=== PATIENT | male | born 1960 | race Caucasian/White ===

== ENCOUNTER 2016-06-20 08:02 | Emergency (ER) | payer MEDICAID, MEDICARE ==
--- NOTE | 2016-06-20 08:27 | UC ---
Respiratory Complaint HPI - HPI Summary HPI Summary: 55 yo male with cough x 1 1/2-2 weeks worse at night Sore throat due to cough chills can't sleep due to cough no n/v/d no SOB - History of Current Complaint Chief Complaint: UCRespiratory Stated Complaint: COUGH,CONGESTION Time Seen by Provider: 06/20/16 08:25 Hx Obtained From: Patient Onset/Duration: Gradual Onset, Lasting Weeks Timing: Constant Severity Initially: Mild Severity Currently: Moderate Pain Intensity: 4 Pain Scale Used: 0-10 Numeric Character: Cough: Productive - at times Aggravating Factors: Deep Breaths, Recumbent Position Alleviating Factors: Nothing Associated Signs And Symptoms: Positive: Chills, Nasal Congestion, Hoarseness - Allergies/Home Medications Allergies/Adverse Reactions: Allergies Allergy/AdvReac Type Severity Reaction Status Date / Time No Known Allergies Allergy Verified 06/20/16 08:13 Home Medications: Home Medications Canagliflozin (NF) [Invokana (NF)] 100 mg PO 06/20/16 [History] PARoxetine HCL TAB* [Paxil TAB*] 40 mg PO DAILY 06/20/16 [History Confirmed 10/01] Pregabalin CAP(*) [Lyrica CAP(*)] BID 06/20/16 [History] PMH/Surg Hx/FS Hx/Imm Hx Endocrine History Of: Reports: Diabetes Denies: Thyroid Disease Cardiovascular History Of: Reports: Cardiac Disorders - cardiomyopathy, Hypertension Respiratory History Of: Denies: Asthma - Surgical History Surgical History: Yes Surgery Procedure, Year, and Place: cardiac angioplasty - Family History Known Family History: Positive: Cardiac Disease, Hypertension - Social History Alcohol Use: None Substance Use Type: None Smoking Status (MU): Former Smoker Length of Time of Smoking/Using Tobacco: quit at 15 years old Have You Smoked in the Last Year: No Household Exposure Type: Cigarettes - Immunization History Most Recent Influenza Vaccination: FEB 2016 Review of Systems Constitutional: Chills, Fatigue Skin: Negative Eyes: Negative ENT: Sore Throat Respiratory: Cough Cardiovascular: Negative Gastrointestinal: Negative Genitourinary: Negative Motor: Negative Neurovascular: Negative Musculoskeletal: Negative Neurological: Negative Psychological: Negative All Other Systems Reviewed And Are Negative: Yes Physical Exam Triage Information Reviewed: Yes Appearance: Well-Appearing - frequent hacking cough, No Pain Distress, Well- Nourished Vital Signs: Initial Vital Signs Temp 98.3 F 06/20/16 08:21 Pulse 89 06/20/16 08:21 Resp 18 06/20/16 08:21 BP 109/77 06/20/16 08:21 Pulse Ox 97 06/20/16 08:21 Eyes: Positive: Conjunctiva Clear, Conjunctiva Inflamed ENT: Positive: Hearing grossly normal, Pharynx normal, TMs normal. Negative: Nasal congestion, Nasal drainage, Trismus, Muffled/hoarse voice Neck: Positive: Supple, Nontender Respiratory: Positive: No respiratory distress, No accessory muscle use, Wheezing - with forced expiration. Negative: Respiratory distress, Decreased breath sounds Cardiovascular: Positive: RRR, No Murmur, Pulses Normal. Negative: Tachycardia Musculoskeletal: Positive: ROM Intact, No Edema Neurological: Positive: Alert, Muscle Tone Normal. Negative: Fatigued Skin Exam: Normal Skin: Negative: rashes UC Diagnostic Evaluation - Laboratory O2 Sat by Pulse Oximetry: 97 - normal/not hypoxic - Radiology Xray Interpretation: No Acute Changes Radiology Interpretation Completed By: Radiologist Respiratory Course/Dx - Differential Dx/Diagnosis Provider Diagnoses: acute bronchitis Discharge - Discharge Plan Condition: Stable Disposition: HOME Prescriptions: Amoxicillin/Clavulanate TAB* [Augmentin TAB 875*] 875 mg PO BID #14 tab Benzonatate CAP* [Tessalon CAP*] 100 - 200 mg PO TID PRN #28 cap PRN Reason: Cough Guaifenesin-Codeine [Cheratussin AC] 5 - 10 ml PO Q4HR PRN #200 syp MDD 50 PRN Reason: Cough Patient Education Materials: Acute Bronchitis (ED) Referrals: Sweta Marina PA [Primary Care Provider] - 5 Days Additional Instructions: use inhaler as directed
[2016-06-20 08:36] VITALS: BP 109/77
[2016-06-20] MEDS ORDERED: Albuterol 2.5 MG/3 ML NEB.SOL* (0.083%) INH ONE (08:42)
[2016-06-20] MEDS ORDERED: Ipratropium 0.5MG/2.5ML NEB* 0.5 MG/2.5 ML NEB.SOLN INH ONE (08:42)
--- NOTE | 2016-06-20 08:52 | RAD ---
INDICATION: Cough x2 weeks COMPARISON: Chest x-ray dated July 31, 2014 TECHNIQUE: PA and lateral views of the chest were obtained. FINDINGS: The heart and mediastinum are normal in size and contour. The lungs are grossly clear. There is no evidence of large pleural effusion. Visualized bones are normal for the patient's age. There is no radiographic evidence of free air beneath the diaphragm IMPRESSION: No radiographic evidence of acute cardiopulmonary disease.
[2016-06-20] MEDS ORDERED: Albuterol HFA INHALER* 8 gm MDI INH ONE (09:20)
== END 2016-06-20 09:41 | disposition home or self-care (01) ==
LOC: UCCORT 08:02
DX: J20.9 Acute bronchitis, unspecified (principal); E11.9 Type 2 diabetes mellitus without complications; Z79.84 Long term (current) use of oral hypoglycemic drugs; I11.9 Hypertensive heart disease without heart failure; I42.9 Cardiomyopathy, unspecified; Z98.61 Coronary angioplasty status; Z87.891 Personal history of nicotine dependence
CPT/HCPCS: 71020; 94640; 99212; A9270-GY; G0463; J7644

== ENCOUNTER 2016-07-06 15:36 | Emergency (ER) | payer MEDICARE ==
[2016-07-06 16:01] VITALS: BP 132/87
[2016-07-06] MEDS ORDERED: Fluorescein Sodium TOPICAL* 1 MG TEST ONE (16:10)
[2016-07-06] MEDS ORDERED: Tetracaine 0.5% OPTH.SOL 4 ML* 1 DROP BTL ONE (16:10)
[2016-07-06] MEDS ORDERED: Eye Irrigation Solution 30 ML BOTTLE ONE (16:10)
--- NOTE | 2016-07-06 17:01 | UC ---
Eye Complaint HPI - HPI Summary HPI Summary: 55 yo male with type II DM 2 days of right eye redness and photophobia pain 8/10 scant d/c wears contacts - History of Current Complaint Chief Complaint: UCEye Stated Complaint: EYE COMPLAINT,CONGESTION Time Seen by Provider: 07/06/16 16:37 Hx Obtained From: Patient Onset/Duration: Gradual Onset, Lasting Hours Timing: Constant Severity Initially: Moderate Severity Currently: Severe Pain Intensity: 8 Pain Scale Used: 0-10 Numeric Location of Injury: Conjunctiva Character: Sharp Aggravating Factor(s): Light Alleviating Factor(s): Darkness Associated Signs And Symptoms: Positive: Drainage (Clear) Eyes: 1 - flourescein uptake - Allergies/Home Medications Allergies/Adverse Reactions: Allergies Allergy/AdvReac Type Severity Reaction Status Date / Time No Known Allergies Allergy Verified 07/06/16 16:01 PMH/Surg Hx/FS Hx/Imm Hx Endocrine History Of: Reports: Diabetes Denies: Thyroid Disease Cardiovascular History Of: Reports: Cardiac Disorders - cardiomyopathy, Hypertension Respiratory History Of: Denies: Asthma - Surgical History Surgical History: Yes Surgery Procedure, Year, and Place: cardiac angioplasty - Family History Known Family History: Positive: Cardiac Disease, Hypertension - Social History Alcohol Use: None Substance Use Type: None Smoking Status (MU): Former Smoker Length of Time of Smoking/Using Tobacco: quit at 15 years old Have You Smoked in the Last Year: No Household Exposure Type: Cigarettes - Immunization History Most Recent Influenza Vaccination: FEB 2016 Review of Systems Constitutional: Negative Skin: Negative Eyes: Photophobia ENT: Negative Respiratory: Negative Cardiovascular: Negative Gastrointestinal: Negative Genitourinary: Negative Motor: Negative Neurovascular: Negative Musculoskeletal: Negative Neurological: Negative Psychological: Negative All Other Systems Reviewed And Are Negative: Yes Physical Exam Triage Information Reviewed: Yes Appearance: Pain Distress, Obese Vital Signs: Initial Vital Signs Temp 96.4 F 07/06/16 15:53 Pulse 87 07/06/16 15:53 Resp 18 07/06/16 15:53 BP 132/87 07/06/16 15:53 Pulse Ox 98 07/06/16 15:53 Vital Signs Reviewed: Yes Eyes: Positive: Conjunctiva Inflamed, Other: - see image ENT: Positive: Pharynx normal, Nasal drainage Neck: Positive: Supple, Nontender Respiratory: Positive: Lungs clear, Normal breath sounds, No respiratory distress Cardiovascular: Positive: RRR, No Murmur Musculoskeletal: Positive: ROM Intact, No Edema Neurological: Positive: Alert Psychological Exam: Normal Skin Exam: Normal Eye Complaint Course/Dx - Differential Dx/Diagnosis Provider Diagnoses: large right corneal abrasion Discharge - Discharge Plan Condition: Stable Disposition: HOME Prescriptions: Ibuprofen TAB* [Motrin TAB*] 600 mg PO Q6H PRN #40 tab PRN Reason: Pain Polymyx/Trimethoprim OPTH* [Polytrim OPHTH*] 1 - 2 drop RIGHT EYE QID #1 btl oxyCODONE/Acetamin 5/325 MG* [Percocet 5/325 TAB*] 1 tab PO Q4H PRN #15 tab MDD 6 PRN Reason: Pain Patient Education Materials: Corneal Abrasion (ED) Referrals: Shonda Segovia MD [Medical Doctor] - As Soon As Possible Additional Instructions: return for new or worsening symptoms
== END 2016-07-06 17:04 | disposition home or self-care (01) ==
LOC: UCCORT 15:36
DX: S05.01XA Injury of conjunctiva and corneal abrasion without foreign body, right eye, initial encounter (principal); X58.XXXA Exposure to other specified factors, initial encounter; E11.9 Type 2 diabetes mellitus without complications; I10 Essential (primary) hypertension; I42.9 Cardiomyopathy, unspecified; Z79.4 Long term (current) use of insulin; E66.9 Obesity, unspecified; Z87.891 Personal history of nicotine dependence
CPT/HCPCS: 99212; A9270-GY; G0463

== ENCOUNTER 2018-05-23 12:53 | Emergency (ER) | payer MEDICARE, MEDICAID ==
[2018-05-23 13:33] VITALS: BP 87/53
--- NOTE | 2018-05-23 13:55 | UC ---
Skin Complaint HPI - HPI Summary HPI Summary: rash x 5 months very itchy , getting worse over the past few months , now his is having similar symptoms has been getting treatment for eczema by his pcp but not better - History of Current Complaint Chief Complaint: UCSkin Time Seen by Provider: 05/23/18 13:36 Stated Complaint: SKIN COMPLAINT Hx Obtained From: Patient Onset/Duration: Gradual Onset, Lasting Weeks - 20, Still Present Timing: Constant Onset Severity: Moderate Current Severity: Severe Pain Intensity: 0 Location: Diffuse Character: Pruritus, Redness Aggravating Factor(s): Touch Alleviating Factor(s): Nothing Associated Signs & Symptoms: Positive: Rash. Negative: Nausea, Vomiting, Numbness, Thirst, Diaphoresis, Difficulty Breathing, Fever, Chills, Wheezing - Allergy/Home Medications Allergies/Adverse Reactions: Allergies Allergy/AdvReac Type Severity Reaction Status Date / Time No Known Allergies Allergy Verified 05/23/18 13:29 Home Medications: Home Medications Insulin NPH Hum/Reg Insulin Hm [Novolin 70-30 Flexpen] 20 unit SQ TID 05/23/18 [ History Confirmed 05/23/18] Tamsulosin CAP* [Flomax CAP*] 0.4 mg PO DAILY 05/23/18 [History Confirmed ] busPIRone TAB* [Buspar TAB*] 5 mg PO BID 05/23/18 [History Confirmed 05/23/18] PMH/Surg Hx/FS Hx/Imm Hx Cardiovascular History: Cardiac Disease, Hypertension - Surgical History Surgical History: Yes Surgery Procedure, Year, and Place: cardiac angioplasty - Family History Known Family History: Positive: Cardiac Disease, Hypertension - Social History Alcohol Use: None Substance Use Type: None Smoking Status (MU): Former Smoker Length of Time of Smoking/Using Tobacco: quit at 15 years old Have You Smoked in the Last Year: No Household Exposure Type: Cigarettes - Immunization History Most Recent Influenza Vaccination: FEB 2016 Review of Systems All Other Systems Reviewed And Are Negative: Yes Constitutional: Positive: Negative Skin: Positive: Rash Eyes: Positive: Negative ENT: Positive: Negative Respiratory: Positive: Negative Is Patient Immunocompromised?: No Physical Exam Triage Information Reviewed: Yes Appearance: Well-Appearing, No Pain Distress, Well-Nourished Vital Signs: Initial Vital Signs Temp 97.9 F 05/23/18 13:27 Pulse 100 05/23/18 13:27 Resp 16 05/23/18 13:27 BP 87/53 05/23/18 13:27 Pulse Ox 97 05/23/18 13:27 Vital Signs Reviewed: Yes Eye Exam: Normal Eyes: Positive: Conjunctiva Clear ENT: Positive: Normal ENT inspection, Hearing grossly normal, Pharynx normal Neck exam: Normal Neck: Positive: Supple, Nontender, No Lymphadenopathy Respiratory: Positive: Chest non-tender, Lungs clear, Normal breath sounds Cardiovascular Exam: Normal Cardiovascular: Positive: RRR, No Murmur, Pulses Normal Abdominal Exam: Normal Skin: Positive: Rashes - diffuse maculopapular rash Course/Dx - Diagnoses Provider Diagnosis: Scabies Discharge - Sign-Out/Discharge Documenting (check all that apply): Patient Departure All imaging exams completed and their final reports reviewed: No Studies - Discharge Plan Condition: Stable Disposition: HOME Prescriptions: Permethrin 5% CREAM* 1 applic TOPICAL SEE INSTRUCTIONS #1 tube Triamcinolone 0.1% CREAM(NF) [Kenalog Cream 0.1%(NF)] 1 applic TOPICAL BID #60 gm Patient Education Materials: Scabies (ED) Referrals: Marc Rangel MD [Primary Care Provider] - If Needed - Billing Disposition and Condition Condition: STABLE Disposition: Home
== END 2018-05-23 13:59 | disposition home or self-care (01) ==
LOC: UCCORT 12:53
DX: B86 Scabies (principal)
CPT/HCPCS: 99212; G0463